=== PATIENT | male | born 1995 | race African-American/Black ===

== ENCOUNTER 2020-04-02 23:41 | Emergency (ER) | payer OTHER, SELFPAY ==
[2020-04-02 23:42] VITALS: BP 145/86; PULSE 66; RESP 16; TEMP 36.6; BMI 26.7
--- NOTE | 2020-04-03 00:06 | ED.DCSUM_ITS ---
- ER Visit Summary Date of Service: 04/03/20 Chief Complaint: Right hand wound History of Present Illness: The patient is a 24 M status post removal of a tattoo surgically by plastic surgeon at [facility] about 2 1/2 weeks ago. Patient states he had sutures in place for about 8 days then removed. Today the wound came open. He denies any significant bleeding, pus, fever or red streaks. No significant pain. Physical Examination: Well-appearing young male no acute distress vital signs are stable afebrile. H EENT exam unremarkable. Lungs clear to auscultation bilaterally. Heart regular rhythm no murmur. Abdomen soft nontender. Patient is moving all 4 extremities. Neurovascular intact. He has multiple tattoos. His right hand in the webspace between the right thumb and index finger there is about a 2 inch open wound. From a prior surgical procedure. There is no active bleeding. There is no discharge. No pus no redness or streaking. No signs of infection. He has full range of motion all digits of the right hand is neurovascular intact. Test Results: None Emergency Department Course and Treatment: Discussed with patient. Wound to be clean and dressed. I will not be suture repaired at this time. He will follow- up with the plastic surgeon on Saturday that his procedure to discuss if they want this to heal secondarily or if he wants to do a secondary closure. Treatment Plan: Keep wound clean and dry. Clean daily and apply antibiotic ointment. Keep it covered. Follow-up with his plastic surgeon at [facility] on Saturday. Disposition: Discharge Impression: Right hand surgical wound separation This note was generated with [employer] dictation software. It may contain incorrect words, spelling, and punctuation that were not noted in review of the chart prior to signing ED Disposition - Plan for ED Patient: Referrals: Care Physician,No Primary [Primary Care Provider] -
--- NOTE | 2020-04-03 00:09 | ED.DEP ---
ED Disposition - Plan for ED Patient: Disposition: Home or Assisted Living Instructions: ED Wound Check Post Op No Infec Referrals: Care Physician,No Primary [Primary Care Provider] - Additional Instructions: Keep wound clean and dry. Clean it daily with soap and water or peroxide and water. No soaking in water. Keep it covered. Follow-up with your plastic surgeon on Saturday and see if they will reevaluate this and decide if they are to let it heal on its own nothing to do with secondary closure. Watch for any signs of infection such as pus, fever, redness, pain or red streaks. Is seen get reevaluated.
[2020-04-03 00:35] VITALS: BP 134/84; PULSE 64; RESP 16; O2SAT 98
== END 2020-04-03 00:37 | disposition home or self-care (01) ==
LOC: ED 04-03 00:19
PROVIDERS: Emergency Provider Emergency Medicine
DX: T81.31XA Disruption of external operation (surgical) wound, not elsewhere classified, initial encounter (principal); S61.401A Unspecified open wound of right hand, initial encounter; X58.XXXA Exposure to other specified factors, initial encounter; Y93.9 Activity, unspecified; Y92.9 Unspecified place or not applicable; Y99.9 Unspecified external cause status; Z98.890 Other specified postprocedural states
CPT/HCPCS: 99282